=== PATIENT | male | born 1990 | race Caucasian/White ===

== ENCOUNTER 2021-06-14 16:09 | Inpatient (IN) | payer SELFPAY ==
[2021-06-14] VITALS (7 sets, daily range): BP systolic 0–79; BP diastolic 0–52
[2021-06-14] MEDS ORDERED: MIDAZOLAM HCL/PF 5 MG/5 ML VIAL. ONE (16:11)
[2021-06-14] MEDS ORDERED: AMIODARONE 150 MG in IV DEXTROSE 5% 100ML 100 ML IV ONE (17:00)
[2021-06-14] MEDS ORDERED: SODIUM BICARB ADULT 8.4% 50 MEQ/50 ML DISP.SYRIN. ONE (17:00)
[2021-06-14] MEDS ORDERED: EPINEPHrine SYRINGE 1 MG/10 ML SYRINGE. ONE (17:00)
[2021-06-14] MEDS ORDERED: AMIODARONE 450 MG in IV DEXTROSE 5% 250 ML IV ONE (17:00)
[2021-06-14] MEDS ORDERED: ACETAMINOPHEN 650 MG SUPP.RECT. PR ONE (17:00)
[2021-06-14] MEDS ORDERED: AMIODARONE 150 MG/3 ML VIAL ONE (17:00)
[2021-06-14] MEDS ORDERED: CALCIUM CHLORIDE 1,000 MG/10 ML DISP.SYRIN ONE (17:00)
[2021-06-14] MEDS ORDERED: EPINEPHrine VIAL 30 MG/30 ML VIAL ONE (17:11)
[2021-06-14 17:12] LABS: BASO % 0 % (0-3); EOS % 0 % (0-3); LYMPH % 4 % (24-48); MEAN CORPUSCULAR HEMOGLOBIN 29 pg (25-35); MEAN CORPUSCULAR HGB CONC 28 g/dL (31-37); MEAN CORPUSCULAR VOLUME 102 fL (79-100); MONO # 0.8 x10^3/uL (0.0-1.1); MONO % 5 % (0-9); NEUT % 91 % (31-73); RED CELL DISTRIBUTION WIDTH 14.2 % (11.5-14.5)
[2021-06-14 17:13] LABS: CALCIUM 9.3 mg/dL (8.5-10.1); GFR 24.7; HEMATOCRIT 55.2 % (39.0-53.0); HEMOGLOBIN 15.6 g/dL (13.0-17.5); NEUT # 14.8 x10^3/uL (1.8-7.7); PLATELET COUNT 481 x10^3/uL (140-400); POTASSIUM 3.9 mmol/L (3.5-5.1); RED BLOOD COUNT 5.42 x10^6/uL (4.30-5.70); WHITE BLOOD COUNT 16.3 x10^3/uL (4.0-11.0)
[2021-06-14 17:16] LABS: ALBUMIN 3.5 g/dL (3.4-5.0); ALBUMIN/GLOBULIN RATIO 0.9 (1.0-1.7); LYMPH # 0.7 x10^3/uL (1.0-4.8); MAGNESIUM 2.8 mg/dL (1.8-2.4); TOTAL BILIRUBIN 0.7 mg/dL (0.2-1.0); TOTAL PROTEIN 7.3 g/dL (6.4-8.2)
[2021-06-14] MEDS ORDERED: NOREPINEPHRINE VIAL 8 MG in IV DEXTROSE 5% 250 ML IV ONE (17:30)
[2021-06-14] MEDS ORDERED: INSULIN REGULAR VIAL 100 UNIT in IV NORMAL SALINE 100ML IV PRN (17:30)
[2021-06-14 17:32] LABS: AMORPHOUS SEDIMENT,UR PRESENT /HPF; BACTERIA,URINE 0 /HPF (0-FEW)
--- NOTE | 2021-06-14 17:33 | RAD ---
Exam: Chest one view INDICATION: Post intubation TECHNIQUE: Frontal view of the chest Comparisons: None FINDINGS: Enteric tube with tip in the left upper quadrant likely within stomach. Endotracheal tube with tip ap proximately 4 cm above the neil. The cardiomediastinal silhouette and pulmonary vessels are within normal limits. There is moderate to large right pneumothorax. There is mild shift the left IMPRESSION: 1. Moderate to large right pneumothorax. Subsequent x-ray demonstrates placement of a chest tube. 2. Other lines and tubes as described above. Electronically signed by: Kwan Freitas MD (06/14/2021 5:30 PM) [facility]
--- NOTE | 2021-06-14 17:37 | RAD ---
XR CHEST 1V Clinical History: Reason: CHEST TUBE PLACEMENT / Spl. Instructions: / History: Technique: AP view of the chest was obtained at 06/14/2021 5:22 PM. Comparison: June 14, 2021. Findings: There has been interval placement of a small-caliber right-sided chest tube. The right-sided pneumoth orax is no longer visualized. The endotracheal tube has been advanced and has its tip in the right main bronchus. There is low lung volumes causing crowding of vasculature. The heart is borderline enlarged. The pulmonary vessels are top normal limits in size and is mild perihilar linear opacities. The enteric tube is again seen unc hanged. Impression: 1. The right pneumothorax is no longer seen status post placement of a chest tube. 2. Right mainstem and patient. Recommend withdrawal of endotracheal tube by at least 3 cm. 3. Bilateral pulmonary infiltrates seen previously. Electronically signed by: Wenceslao Barriga III, MD (06/14/2021 5:35 PM) [facility]
[2021-06-14 17:38] LABS: BARBITURATES NEG (NEG); BENZODIAZEPINES NEG (NEG); CANNABINOIDS NEG (NEG); COCAINE NEG (NEG); METHADONE NEG (NEG); OPIATES NEG (NEG); PHENCYCLIDINE NEG (NEG)
[2021-06-14 17:39] LABS: AMPHETAMINE/METHAMPHETAMINE NEG (NEG)
--- NOTE | 2021-06-14 17:54 | PDOC1 ---
History and Physical Date of Admission Date of Admission DATE: 06/14/21 TIME: 17:54 Identification/Chief Complaint Chief Complaint SVT/Cardiac arrest Source Source: Caregiver, Chart review History of Present Illness History of Present Illness Mr Steele is a 31 yo male with PMHx chiari malformation who comes from home via EMS unresponsive after treatment for SVT. Was given 3 doses of adenosine with no change in rate or rhythm. Had a fever of 102.7 F. His mother notes that after he came out of the shower she heard a thump this morning and he was not responding well he had been complaining of a little bit of a headache recently and did have some numbness and tingling in his extremities prior to his shower but no worse than normal. Has history of Chiari malformation at age 8 did have third ventricular stent placement per his father at [facility]. He did have meningitis in the early 1999s. There is a strong family history of diabetes and hypertension. Upon arrival in the emergency room the patient had recurrent SVT and had respiratory distress, code was called and the patient was intubated and had CPR and was resuscitated. CXR revealed a right-sided pneumothorax and a chest tube has been placed and upsized per ED physician. WBC 16.3, Hb 15.6 with MCV 102, platelets 41, NA 127, K3.9, BUN 29, CR 3, glucose 2017, calcium 9.3, magnesium 2.8 total bilirubin 0.7, AST 19, ALT 74, alkaline phosphatase 175, albumin 3.5, lipase 71, high-sensitivity troponin is 15, urine drug screen negative, urinalysis with moderate blood glucosuria. ABG 6.8/113/86. Past Medical History Cardiovascular: No pertinent hx Past Surgical History Past Surgical History: Other (Chiari cerebellar resection age 8) Family History Family History: Cancer, Diabetes, High Cholestrol, Hypertension Social History Smoke: No ALCOHOL: none Drugs: None Current Medications Current Medications Current Medications Midazolam HCl (Versed) 5 mg STK-MED ONCE .ROUTE ; Start 06/14/21 at 16:11; Stop 06/14/21 at 16:11; Status DC Acetaminophen (Tylenol Supp) 975 mg 1X ONCE HI ; Start 06/14/21 at 17:00; Stop 06/14/21 at 17:33; Status DC Amiodarone HCl 150 mg/Dextrose 103 ml @ 618 mls/hr 1X ONCE IV ; Start 06/14/21 at 17:00; Stop 06/14/21 at 17:09; Status DC Amiodarone HCl 450 mg/Dextrose 259 ml @ 33 mls/hr 1X ONCE IV ; Start 06/14/21 at 17:00; Stop 06/15/21 at 00:50 Epinephrine HCl (Adrenalin) 30 mg STK-MED ONCE .ROUTE ; Start 06/14/21 at 17:11; Stop 06/14/21 at 17:11; Status DC Norepinephrine Bitartrate 8 mg/ Dextrose 258 ml @ 23.801 mls/ hr 1X ONCE IV ; Start 06/14/21 at 17:30; Stop 06/14/21 at 17:31; Status DC Insulin Human Regular 100 unit/ Sodium Chloride 101 ml @ 1 mls/hr CONT PRN IV PER PROTOCOL; Start 06/14/21 at 17:30 Piperacillin Sod/ Tazobactam Sod 4.5 gm/Sodium Chloride 100 ml @ 200 mls/hr 1X ONCE IV ; Start 06/14/21 at 18:00; Stop 06/14/21 at 18:29 Allergies Allergies: Coded Allergies: No Known Drug Allergies (Unverified , 06/14/21) ROS Review of System Unable to obtain is unresponsive. Physical Exam General: Other (On ventilator not responsive not on sedation) HEENT: Atraumatic, PERRLA, Other (Posterior cervical scar) Heart: irregularly irregular Abdomen: Normal bowel sounds, Other (Massively distended) Extremities: No clubbing, No cyanosis, No edema, Normal pulses, No tenderness/swelling Skin: No rashes, No breakdown, No significant lesion Neuro: Other (Does not withdraw to painful stimuli) Psych/Mental Status: Other (Not responsive) Labs Labs Laboratory Tests Test 06/14/21 16:15 06/14/21 16:47 White Blood Count 16.3 x10^3/uL (4.0-11.0) Red Blood Count 5.42 x10^6/uL (4.30-5.70) Hemoglobin 15.6 g/dL (13.0-17.5) Hematocrit 55.2 % (39.0-53.0) Mean Corpuscular Volume 102 fL (79-100) Mean Corpuscular Hemoglobin 29 pg (25-35) Mean Corpuscular Hemoglobin Concent 28 g/dL (31-37) Red Cell Distribution Width 14.2 % (11.5-14.5) Platelet Count 481 x10^3/uL (140-400) Neutrophils (%) (Auto) 91 % (31-73) Lymphocytes (%) (Auto) 4 % (24-48) Monocytes (%) (Auto) 5 % (0-9) Eosinophils (%) (Auto) 0 % (0-3) Basophils (%) (Auto) 0 % (0-3) Neutrophils # (Auto) 14.8 x10^3/uL (1.8-7.7) Lymphocytes # (Auto) 0.7 x10^3/uL (1.0-4.8) Monocytes # (Auto) 0.8 x10^3/uL (0.0-1.1) Eosinophils # (Auto) 0.0 x10^3/uL (0.0-0.7) Basophils # (Auto) 0.0 x10^3/uL (0.0-0.2) Sodium Level 127 mmol/L (136-145) Potassium Level 3.9 mmol/L (3.5-5.1) Chloride Level 88 mmol/L (98-107) Carbon Dioxide Level 20 mmol/L (21-32) Anion Gap 19 (6-14) Blood Urea Nitrogen 29 mg/dL (8-26) Creatinine 3.0 mg/dL (0.7-1.3) Estimated GFR (Cockcroft-Gault) 24.7 BUN/Creatinine Ratio 10 (6-20) Glucose Level 2007 mg/dL (70-99) Calcium Level 9.3 mg/dL (8.5-10.1) Magnesium Level 2.8 mg/dL (1.8-2.4) Total Bilirubin 0.7 mg/dL (0.2-1.0) Aspartate Amino Transf (AST/SGOT) 19 U/L (15-37) Alanine Aminotransferase (ALT/SGPT) 74 U/L (16-63) Alkaline Phosphatase 175 U/L (46-116) Troponin I High Sensitivity 15 ng/L (4-75) Total Protein 7.3 g/dL (6.4-8.2) Albumin 3.5 g/dL (3.4-5.0) Albumin/Globulin Ratio 0.9 (1.0-1.7) Lipase 71 U/L (73-393) Urine Collection Type Unknown Urine Color (Auto) Colorless Urine Turbidity Clear Urine pH (Auto) 5.5 (<5.0-8.0) Urine Specific [place] 1.028 (1.000-1.030) Urine Protein (Auto) Negative mg/dL (Negative) Urine Glucose (Auto)(UA) >=1000 mg/dL (Negative) Urine Ketones (Auto) Trace mg/dL (Negative) Urine Blood (Auto) Moderate (Negative) Urine Nitrite Negative (Negative) Urine Bilirubin (Auto) Negative (Negative) Urine Urobilinogen (Auto) Normal mg/dL (Normal) Urine Leukocyte Esterase (Auto) Negative (Negative) Urine RBC 1-2 /HPF (0-2) Urine WBC 1-4 /HPF (0-4) Urine Amorphous Sediment Present /HPF Urine Bacteria 0 /HPF (0-FEW) Urine Opiates Screen Neg (NEG) Urine Methadone Screen Neg (NEG) Urine Barbiturates Neg (NEG) Urine Phencyclidine Screen Neg (NEG) Urine Amphetamine/Methamphetamine Neg (NEG) Urine Benzodiazepines Screen Neg (NEG) Urine Cocaine Screen Neg (NEG) Urine Cannabinoids Screen Neg (NEG) Urine Ethyl Alcohol Neg (NEG) Laboratory Tests Test 06/14/21 16:15 06/14/21 16:47 White Blood Count 16.3 x10^3/uL (4.0-11.0) Red Blood Count 5.42 x10^6/uL (4.30-5.70) Hemoglobin 15.6 g/dL (13.0-17.5) Hematocrit 55.2 % (39.0-53.0) Mean Corpuscular Volume 102 fL (79-100) Mean Corpuscular Hemoglobin 29 pg (25-35) Mean Corpuscular Hemoglobin Concent 28 g/dL (31-37) Red Cell Distribution Width 14.2 % (11.5-14.5) Platelet Count 481 x10^3/uL (140-400) Neutrophils (%) (Auto) 91 % (31-73) Lymphocytes (%) (Auto) 4 % (24-48) Monocytes (%) (Auto) 5 % (0-9) Eosinophils (%) (Auto) 0 % (0-3) Basophils (%) (Auto) 0 % (0-3) Neutrophils # (Auto) 14.8 x10^3/uL (1.8-7.7) Lymphocytes # (Auto) 0.7 x10^3/uL (1.0-4.8) Monocytes # (Auto) 0.8 x10^3/uL (0.0-1.1) Eosinophils # (Auto) 0.0 x10^3/uL (0.0-0.7) Basophils # (Auto) 0.0 x10^3/uL (0.0-0.2) Sodium Level 127 mmol/L (136-145) Potassium Level 3.9 mmol/L (3.5-5.1) Chloride Level 88 mmol/L (98-107) Carbon Dioxide Level 20 mmol/L (21-32) Anion Gap 19 (6-14) Blood Urea Nitrogen 29 mg/dL (8-26) Creatinine 3.0 mg/dL (0.7-1.3) Estimated GFR (Cockcroft-Gault) 24.7 BUN/Creatinine Ratio 10 (6-20) Glucose Level 2007 mg/dL (70-99) Calcium Level 9.3 mg/dL (8.5-10.1) Magnesium Level 2.8 mg/dL (1.8-2.4) Total Bilirubin 0.7 mg/dL (0.2-1.0) Aspartate Amino Transf (AST/SGOT) 19 U/L (15-37) Alanine Aminotransferase (ALT/SGPT) 74 U/L (16-63) Alkaline Phosphatase 175 U/L (46-116) Troponin I High Sensitivity 15 ng/L (4-75) Total Protein 7.3 g/dL (6.4-8.2) Albumin 3.5 g/dL (3.4-5.0) Albumin/Globulin Ratio 0.9 (1.0-1.7) Lipase 71 U/L (73-393) Urine Collection Type Unknown Urine Color (Auto) Colorless Urine Turbidity Clear Urine pH (Auto) 5.5 (<5.0-8.0) Urine Specific [place] 1.028 (1.000-1.030) Urine Protein (Auto) Negative mg/dL (Negative) Urine Glucose (Auto)(UA) >=1000 mg/dL (Negative) Urine Ketones (Auto) Trace mg/dL (Negative) Urine Blood (Auto) Moderate (Negative) Urine Nitrite Negative (Negative) Urine Bilirubin (Auto) Negative (Negative) Urine Urobilinogen (Auto) Normal mg/dL (Normal) Urine Leukocyte Esterase (Auto) Negative (Negative) Urine RBC 1-2 /HPF (0-2) Urine WBC 1-4 /HPF (0-4) Urine Amorphous Sediment Present /HPF Urine Bacteria 0 /HPF (0-FEW) Urine Opiates Screen Neg (NEG) Urine Methadone Screen Neg (NEG) Urine Barbiturates Neg (NEG) Urine Phencyclidine Screen Neg (NEG) Urine Amphetamine/Methamphetamine Neg (NEG) Urine Benzodiazepines Screen Neg (NEG) Urine Cocaine Screen Neg (NEG) Urine Cannabinoids Screen Neg (NEG) Urine Ethyl Alcohol Neg (NEG) VTE Prophylaxis Ordered VTE Prophylaxis Devices: No VTE Pharmacological Prophylaxi: Yes Assessment/Plan Assessment/Plan Cardiac arrest - with recurrent SVT, no clear etiology at this time Combined hypercapnic and hypoxic respiratory failure - s/p intubation Pneumothorax - on right, s/p chest tube placement in ED. Pulmonology consulted, will place to suction Sepsis - no clear source, though he has previously had meningitis, will treat as such DKA - glucose 2006, IV insulin given, aggressive IVF reuscitation, DKA protocol. No history of DM2 per family Acute renal failure - no renal disease history, likely vasomotor nephropathy History of Chiari Malformation - s/p cerebellar resection and stent placement per father. Macrocytosis - unclear etiology, family denies alcohol use history FEN - NPO PPX - heparin FULL CODE Dispo - inpatient ICU Patient is critically ill discussed with family bedside including parents and grandparents his poor prognosis CC time 47 Justifications for Admission Other Justification SLOANE MELCHOR MD Jun 14, 2021 17:54
[2021-06-14 17:57] LABS: BASE EXCESS ABG -20 mmol/L (-3-3); HCO3 ABG 17 mmol/L (21-28); PO2 ABG 86 mmHg (85-108); SAT O2 ABG 86 % (92-99)
[2021-06-14] MEDS ORDERED: PIPERACILLIN/TAZOBACTAM 4.5 GM in IV NORMAL SALINE 100ML 100 ML IV ONE (18:00)
[2021-06-14] MEDS ORDERED: ONDANSETRON PF 4 MG/2 ML VIAL. IVP PRN (18:00)
[2021-06-14 18:02] LABS: BASE EXCESS ABG -20 mmol/L (-3-3); HCO3 ABG 17 mmol/L (21-28); PO2 ABG 57 mmHg (85-108)
--- NOTE | 2021-06-14 18:04 | RAD ---
EXAMINATION: Chest radiograph. VIEWS: 1 COMPARISON: 06/14/2021 INDICATION:31 years, Male, Central line placement. FINDINGS/ IMPRESSION: * Interval placement of right IJ central venous catheter with the tip terminates in the superior cav oatrial junction. * There is a new moderate right pneumothorax despite pleural drain catheter in place. * No other significant changes since earlier exam. Electronically signed by: Elena Brown MD (06/14/2021 6:01 PM) [facility]
[2021-06-14 18:06] LABS: % BANDS 5 % (0-9); % LYMPHS 3 % (24-48); % MONOS 4 % (0-10); % SEGS 88 % (35-66); PLT ESTIMATE INCREASED (ADEQUATE)
[2021-06-14 18:07] LABS: FIO2 ABG 100; PCO2 ABG 103 mmHg (35-46); SAT O2 ABG 67 % (92-99)
[2021-06-14 18:22] LABS: FIO2 ABG 100; PCO2 ABG 113 mmHg (35-46)
--- NOTE | 2021-06-14 18:30 | PHYS DOC ---
Past Medical History Additional Past Medical Histor: PER EMS, PARENT DENIES MED HX. Past Surgical History: Other Additional Past Surgical Histo: BRAIN SX CHILD Smoking Status: Unknown if ever smoked Alcohol Use: Sober Additional Information: UNKNOWN ETOH HX General Adult EDM: Chief Complaint: CPR/FULL ARREST HPI: HPI: Patient is a 31 year old male who was brought here by EMS from home due to altered mental status, respiratory problem, unstable SVT. EMS said patient family called because patient was acting confused today. When they got there patient was breathing heavily, his heart rate was in the 200s, his blood pressure was low, they did a blood sugar and it was over 500. Family stated that patient had no history of diabetic. No injury reported. EMS said they proceed with adenosine 6 mg, 12 mg, 12 mg, but was not able to convert the SVT. Patient blood pressure was low, therefore they cardioverted him with 50 J. His heart rate slowed down but still in the upper 170 bpm, patient was still in SVT, was confused, respond to painful stimuli, breathing heavily, his oxygen saturation was only in the 70% on 100% oxygen via mask. Patient was brought here emergently. Upon arrival to ER, patient was only responding to painful stimuli, patient was tachypneic and tachycardic . Patient was hypotensive. Patient was given 5 mg versus emergently, patient was cardioverted with 100 J. Patient heart rate was not converted. Patient was then given 300 mg of amiodarone, and 1 L normal saline IV bolus. Patient was not responding to verbal stimuli at this time. Decision made to intubate the patient, patient was given 20 mg of etomidate and 100 mg of succinylcholine. There was a large amount of food particle coming out of his mouth. Suction was done, patient went into cardiac arrest. Patient was intubated emergently by this physician, patient was resuscitated per ACLS protocol. Review of Systems: Review of Systems: Not able to evaluate because patient condition Heart Score: C/O Chest Pain: N/A Risk Factors: Risk Factors: DM, Current or recent (<one month) smoker, HTN, HLP, family history of CAD, obesity. Risk Scores: Score 0 - 3: 2.5% MACE over next 6 weeks - Discharge Home Score 4 - 6: 20.3% MACE over next 6 weeks - Admit for Clinical Observation Score 7 - 10: 72.7% MACE over next 6 weeks - Early Invasive Strategies Current Medications: Current Medications Medications (Trade) Dose Ordered Sig/Tamera Start Time Stop Time Status Last Admin Dose Admin Acetaminophen (Tylenol Supp) 975 mg 1X ONCE 06/14/21 17:00 06/14/21 17:33 DC Amiodarone HCl 150 mg/Dextrose 103 ml @ 618 mls/hr 1X ONCE 06/14/21 17:00 06/14/21 17:09 DC Amiodarone HCl 450 mg/Dextrose 259 ml @ 33 mls/hr 1X ONCE 06/14/21 17:00 06/15/21 00:50 Epinephrine HCl (Adrenalin) 30 mg STK-MED ONCE 06/14/21 17:11 06/14/21 17:11 DC Insulin Human Regular 100 unit/ Sodium Chloride 101 ml @ 1 mls/hr CONT PRN 06/14/21 17:30 06/14/21 18:07 38.9 MLS/HR Midazolam HCl (Versed) 5 mg STK-MED ONCE 06/14/21 16:11 06/14/21 16:11 DC Norepinephrine Bitartrate 8 mg/ Dextrose 258 ml @ 23.801 mls/ hr 1X ONCE 06/14/21 17:30 06/14/21 17:31 DC Allergies: Allergies: Allergies Coded Allergies Type Severity Reaction Last Updated Verified Unable to Assess 06/14/21 No Physical Exam: PE: Constitutional: morbidly Obese, severe distress, cyanotic, only responsive to painful stimuli. HENT: Normocephalic, atraumatic, bilateral external ears normal, very dry oral mucosa. Eyes: PERRLA, EOMI, conjunctiva normal, no discharge. [] Neck: neck is short, no JVD, TRACHEA IS MIDLINE. Cardiovascular: Tachycardia, irregular, NO MURMUR. Lungs & Thorax: TACHYPNIC INITIALLY, LABOROUS BREATHING. AFTER INTUBATION: Bilateral breath sounds WITH CRACKLES, RALE ON MECHANICAL VENTILATOR. Abdomen: ABDOMEN IS DISTENDED MODERATELY. Skin: COLD, PALE. Back: NO EVIDENCE OF INJURY Extremities:NO TRAUMA, NO DEFORMITY Neurologic: ONLY RESPONSIVE TO PAINFUL STIMULI UPON ARRIVAL. Psychologic: UNABLE TO EVALUATE Current Patient Data: Labs: Laboratory Tests Test 06/14/21 16:15 06/14/21 16:47 06/14/21 17:50 White Blood Count 16.3 x10^3/uL (4.0-11.0) H Red Blood Count 5.42 x10^6/uL (4.30-5.70) Hemoglobin 15.6 g/dL (13.0-17.5) Hematocrit 55.2 % (39.0-53.0) H Mean Corpuscular Volume 102 fL (79-100) H Mean Corpuscular Hemoglobin 29 pg (25-35) Mean Corpuscular Hemoglobin Concent 28 g/dL (31-37) L Red Cell Distribution Width 14.2 % (11.5-14.5) Platelet Count 481 x10^3/uL (140-400) H Neutrophils (%) (Auto) 91 % (31-73) H Lymphocytes (%) (Auto) 4 % (24-48) L Monocytes (%) (Auto) 5 % (0-9) Eosinophils (%) (Auto) 0 % (0-3) Basophils (%) (Auto) 0 % (0-3) Neutrophils # (Auto) 14.8 x10^3/uL (1.8-7.7) H Lymphocytes # (Auto) 0.7 x10^3/uL (1.0-4.8) L Monocytes # (Auto) 0.8 x10^3/uL (0.0-1.1) Eosinophils # (Auto) 0.0 x10^3/uL (0.0-0.7) Basophils # (Auto) 0.0 x10^3/uL (0.0-0.2) Segmented Neutrophils % 88 % (35-66) H Band Neutrophils % 5 % (0-9) Lymphocytes % 3 % (24-48) L Monocytes % 4 % (0-10) Platelet Estimate Increased (ADEQUATE) Sodium Level 127 mmol/L (136-145) L Potassium Level 3.9 mmol/L (3.5-5.1) Chloride Level 88 mmol/L (98-107) L Carbon Dioxide Level 20 mmol/L (21-32) L Anion Gap 19 (6-14) H Blood Urea Nitrogen 29 mg/dL (8-26) H Creatinine 3.0 mg/dL (0.7-1.3) H Estimated GFR (Cockcroft-Gault) 24.7 BUN/Creatinine Ratio 10 (6-20) Glucose Level 2007 mg/dL (70-99) *H Calcium Level 9.3 mg/dL (8.5-10.1) Magnesium Level 2.8 mg/dL (1.8-2.4) H Total Bilirubin 0.7 mg/dL (0.2-1.0) Aspartate Amino Transferase (AST) 19 U/L (15-37) Alanine Aminotransferase (ALT) 74 U/L (16-63) H Alkaline Phosphatase 175 U/L (46-116) H Troponin I High Sensitivity 15 ng/L (4-75) Total Protein 7.3 g/dL (6.4-8.2) Albumin 3.5 g/dL (3.4-5.0) Albumin/Globulin Ratio 0.9 (1.0-1.7) L Lipase 71 U/L (73-393) L Urine Collection Type Unknown Urine Color (Auto) Colorless Urine Turbidity Clear Urine pH (Auto) 5.5 (<5.0-8.0) Urine Specific [place] 1.028 (1.000-1.030) Urine Protein (Auto) Negative mg/dL (Negative) Urine Glucose (Auto)(UA) >=1000 mg/dL (Negative) Urine Ketones (Auto) Trace mg/dL (Negative) Urine Blood (Auto) Moderate (Negative) Urine Nitrite Negative (Negative) Urine Bilirubin (Auto) Negative (Negative) Urine Urobilinogen (Auto) Normal mg/dL (Normal) Urine Leukocyte Esterase (Auto) Negative (Negative) Urine RBC 1-2 /HPF (0-2) Urine WBC 1-4 /HPF (0-4) Urine Amorphous Sediment Present /HPF Urine Bacteria 0 /HPF (0-FEW) O2 Saturation 86 % (92-99) L 67 % (92-99) *L Arterial Blood pH 6.80 (7.35-7.45) *L 6.83 (7.35-7.45) *L Arterial Blood pCO2 at Patient Temp 113 mmHg (35-46) *H 103 mmHg (35-46) *H Arterial Blood pO2 at Patient Temp 86 mmHg (85-108) 57 mmHg (85-108) L Arterial Blood HCO3 17 mmol/L (21-28) L 17 mmol/L (21-28) L Arterial Blood Base Excess -20 mmol/L (-3-3) L -20 mmol/L (-3-3) L FiO2 100 100 Urine Opiates Screen Neg (NEG) Urine Methadone Screen Neg (NEG) Urine Barbiturates Neg (NEG) Urine Phencyclidine Screen Neg (NEG) Urine Amphetamine/Methamphetamine Neg (NEG) Urine Benzodiazepines Screen Neg (NEG) Urine Cocaine Screen Neg (NEG) Urine Cannabinoids Screen Neg (NEG) Urine Ethyl Alcohol Neg (NEG) Laboratory Tests 06/14/21 16:15 Laboratory Tests 06/14/21 16:15 Vital Signs: Vital Signs Date Time Temp Pulse Resp B/P (MAP) Pulse Ox O2 Delivery O2 Flow Rate FiO2 06/14/21 16:10 102.7 179 26 154/87 (109) 100 NonRebreather Mask 10.0 102.7 EKG: EKG: [] Radiology/Procedures: Radiology/Procedures: [][place] [address] IMAGING REPORT Signed PATIENT: JENNI ACUNA ACCOUNT: [id number] : 1990 LOCATION: ER AGE: 31 SEX: M EXAM STATUS: PRE ER ORD. PHYSICIAN: KAYLEE MEJÍA DO REASON: post intubation, CPR PROCEDURE: PORTABLE CHEST 1V Exam: Chest one view INDICATION: Post intubation TECHNIQUE: Frontal view of the chest Comparisons: None FINDINGS: Enteric tube with tip in the left upper quadrant likely within stomach. Endo tracheal tube with tip approximately 4 cm above the neil. The cardiomediastinal silhouette and pulmonary vessels are within normal limits. There is moderate to large right pneumothorax. There is mild shift the left IMPRESSION: 1. Moderate to large right pneumothorax. Subsequent x-ray demonstrates placement of a chest tube. 2. Other lines and tubes as described above. Electronically signed by: Kwan Vasquez MD (06/14/2021 5:30 PM) [facility] DICTATED and SIGNED BY: KWAN VASQUEZ MD DATE: 06/14/[address] [address] IMAGING REPORT Signed PATIENT: JENNI ACUNA ACCOUNT: [id number] : 1990 LOCATION: ER AGE: 31 SEX: M EXAM STATUS: PRE ER ORD. PHYSICIAN: KAYLEE MEJÍA DO REASON: CHEST TUBE PLACEMENT PROCEDURE: CHEST AP ONLY XR CHEST 1V Clinical History: Reason: CHEST TUBE PLACEMENT / Spl. Instructions: / History: Technique: AP view of the chest was obtained at 06/14/2021 5:22 PM. Comparison: June 14, 2021. Findings: There has been interval placement of a small-caliber right-sided chest tube. The right-sided pneumothorax is no longer visualized. The endotracheal tube has been advanced and has its tip in the right main bronchus. There is low lung volumes causing crowding of vasculature. The heart is borderline enlarged. The pulmonary vessels are top normal limits in size and is mild perihilar linear opacities. The enteric tube is again seen unchanged. Impression: 1. The right pneumothorax is no longer seen status post placement of a chest tube. 2. Right mainstem and patient. Recommend withdrawal of endotracheal tube by at least 3 cm. 3. Bilateral pulmonary infiltrates seen previously. Electronically signed by: Earlene Wills III, MD (06/14/2021 5:35 PM) [facility] DICTATED and SIGNED BY: EARLENE WILLS III, MD DATE: 06/14/211730 Course & Med Decision Making: Course & Med Decision Making Pertinent Labs and Imaging studies reviewed. (See chart for details) INTUBATION: Indication: Respiratory failure Consent: Unable to give consent due to emergent nature. Medications Used: see nursing note Procedure: The patient was placed in the appropriate position. Intubation was performed WITH GLIDESCOPE, CORD VISUALIZATION METHOD, ET TUBE 8 KOSOVAN, SECURED AT 24 AT LIP Initial confirmation of placement included bilateral breath s ounds, tube fogging, adequate chest rise, adequate pulse oximetry reading and good color change on CO2 DETECTOR. A chest x-ray to verify correct placement of the tube showed appropriate tube position. Complications: PATIENT ASPIRATED AND CODED DURING THE PROCEDURE. CHEST TUBE PLACEMENT Indication: RIGHT PNEUMOTHORAX Consent: EMERGENT CONSENT. Procedure: The patient was placed in an appropriate position. An incision was made ON RIGHT MIDMAXILLARY LINE, A 7 KOSOVAN COOK CATHETER WAS PLACED IN 4 INTER COSTAL SPACEaFrench chest tube was placed and connected to SUCTION. The tube was sutured in place and the site was covered with an occlusive dressing. All connections were banded. Breath sounds after the procedure were COARSE. A chest x-ray was obtained to evaluate placement [X-RAY]. Complications: NONE CENTRAL VENOUS LINE PLACEMENT: Indication: Vascular access, PATIENT WAS HYPOTENSIVE, HYPOXIC Consent: EMERGENT CONSENT. Procedure: The patient was positioned appropriately and the skin over the RIGHT SUBCLAVIAN VEIN was prepped and draped in a sterile fashion. Local anesthesia was NOT used. Ultrasound guidance WAS NOT utilized. A large bore needle was used to identify the vein. A guide wire was then inserted into the vein through the needle. A triple lumen catheter was then inserted into the vessel over the guide wire using the Seldinger technique. All ports showed good, free flowing blood return and were flushed with saline solution. The catheter was then securely fastened to the skin with sutures and covered with a sterile dressing. A post procedure X-ray was ordered. Patient is a 31-year-old male who was brought here by EMS from home due to altered mental status, respiratory problem, patient was found to be in unstable SVT, hypoxic, hypotensive, altered mentation. EMS did give him adenosine, was not responsive to it, patient WAS shocked 1 time by EMS, patient was still in SVT, unstable, altered mentation, hypoxic, hypotensive. Upon arrival to room patient was given 5 mg Versed IV, patient was cardioverted with 100 J, patient was not responsive to it, he becAme more tachycardic. Patient was given 300 mg of amiodarone. Patient was then cardioverted 150 J, it did slow his heart rate down to 130 to 140 bpm. Patient was unresponsive to verbal, hypoxic, hypotens jas. Patient was then intubated to protect his airway and provide oxygen. During the intubation process, patient aspirated, no pulse, patient was coded per ACLS protocol. Patient was intubated successfully. ROSC was returned at 1843. Chest x-ray show tension pneumothorax on the right side. Patient coded again. A Cook catheter chest tube was placed on the right side. ROSC was returned again. Chest x-ray showed improvement of the pneumothorax. However later patient was hypoxic, hypotensive, patient will need to have a central line placed for IV access and pressOR medication. A central line was placed on the right subclavian area. Patient was still hypoxic despite he was intubated. Checking the balloon of the ET tube, it appeared to be leak. ET tube was exchanged using the bougie. Repeat chest x-ray show return right-sided pneumothorax. There is small bore chest tube appeared to be kinked and clotted. Therefore a 24 Algerian chest tube was placed in its place. Repeat chest x-ray showed consistent right-sided pneumothorax. Patient is intubated, on Levophed, on insulin drip. Patient was not responsive to painful or verbal stimuli despite he is not on any sedation medication. Patient was given 5 mg Versed from the beginning. Patient case was discussed with the marketing database coordinator on-call Dr. Tan. He came down to see the patient in the room. Patient care was discussed with the hospital on-call Dr. Prescott who agreed to admit the patient . This physician and Dr. Prescott discussed patient prognosis with his family including his mom and dad that. Patient prognosis is very poor. Due to a high probability of clinically significant, life-threatening deterioration, the patient required my highest level of preparedness to intervene emergently and I personally spent this critical care time directly and personally managing the patient. This critical care time included obtaining the history; examining the patient; pulse oximetry; real-time ordering and review of studies; arranging urgent treatment with development of a management plan; evaluation of patient's response to treatment; frequent reassessment; and, discussions with other providers. This critical care time was performed to assess and manage the high probability of imminent, life-threatening deterio ration that could result in multi-organ failure. It was not inclusive of separately billable procedures. Please see the Course and Medical Decision Making section and the rest of the note for further information on patient assessment and treatment. Total critical care time is 60 minutes. Dragon Disclaimer: Dragon Disclaimer: This electronic medical record was generated, in whole or in part, using a voice recognition dictation system. Departure Departure Impression: Primary Impression: Cardiac arrest Additional Impressions: DKA (diabetic ketoacidosis) Acute renal failure Respiratory failure Pneumothorax, right Aspiration pneumonitis SVT (supraventricular tachycardia) Disposition: 09 ADMITTED INPATIENT Admitting Physician: UMESH (Dr. Pavel lEizabeth) Condition: CRITICAL Referrals: NO PCP (PCP) KAYLEE MEJÍA DO Jun 14, 2021 18:30
--- NOTE | 2021-06-14 18:42 | RAD ---
Exam: Chest one view INDICATION: Post chest tube placement TECHNIQUE: Frontal view of the chest Comparisons: Radiograph earlier today FINDINGS: There is a right-sided chest tube with tip at the right hilum. Enteric tube traverses below the diaph ragm with tip likely at the proximal stomach. There is a right IJ catheter with tip at the atrial cav al junction. The cardiomediastinal silhouette and pulmonary vessels are within normal limits. Persistent moderate-sized right pneumothorax. Remaining lungs are clear. IMPRESSION: Lines and tubes described above. Persistent moderate right pneumothorax. Electronically signed by: Kwan Freitas MD (06/14/2021 6:40 PM) [facility]
[2021-06-14] MEDS ORDERED: NOREPINEPHRINE VIAL 8 MG in IV DEXTROSE 5% 250 ML IV PRN (18:45)
--- NOTE | 2021-06-14 19:16 | PDOC2 ---
CONSULT Date of Consult Date of Consult DATE: 06/14/21 TIME: 19:02 Reason for Consult Reason for Consult: Cardiac arrest Referring Physician Referring Physician: Dr. Prescott Identification/Chief Complaint Chief Complaint Increasing shortness of breath Source Source: Caregiver, Chart review History of Present Illness Reason for Visit: The patient is a 31-year-old male who by his family report was feeling relatively well earlier today. When they checked with him this afternoon he reported numbness in his extremities bilaterally. He then reported progr essively increasing shortness of breath. He had episodes of apparent near syncope and paramedics were called. The paramedics transported the patient to the [place] emergency room. In route the patient reportedly had a rapid SVT that was not improved with adenosine. Upon arrival in the emergency room the patient had recurrent supraventricular tachycardia and then by nurses report became pulseless. A code was called and the patient was resuscitated. He has since been intubated. Chest x-ray did show a right-sided pneumothorax and a chest tube has been placed. His rate is now [address] segment changes. Blood pressure is 98/54 on pressors. Lab testing is significant for initial glucose of 2007, troponin of 15, WBC of 16.3, sodium of 127, potassium 3.9, BUN of 29 and a creatinine of 3.0. The patient has not seen a physician in several years. His family denies any history of diabetes. He has a history of Chiari Malformation surgery with shunt placement greater than 20 years ago at [facility]. He also had an episode of meningitis in 2004. Past Medical History CENTRAL NERVOUS SYSTEM: Other (Chiari malformation, meningitis) Past Surgical History Past Surgical History: Other (Chiari malformation surgery greater than 20 years ago with shunt placement) Family History Family History: Cancer, Hypertension Social History No ALCOHOL: none Current Problem List Problem List Problems Medical Problems: (1) Acute renal failure Status: Acute (2) Aspiration pneumonitis Status: Acute (3) Cardiac arrest Status: Acute (4) DKA (diabetic ketoacidosis) Status: Acute (5) Pneumothorax, right Status: Acute (6) Respiratory failure Status: Acute (7) SVT (supraventricular tachycardia) Status: Acute Current Medications Current Medications Current Medications Midazolam HCl (Versed) 5 mg STK-MED ONCE .ROUTE ; Start 06/14/21 at 16:11; Stop 06/14/21 at 16:11; Status DC Acetaminophen (Tylenol Supp) 975 mg 1X ONCE NM ; Start 06/14/21 at 17:00; Stop 06/14/21 at 17:33; Status DC Amiodarone HCl 150 mg/Dextrose 103 ml @ 618 mls/hr 1X ONCE IV ; Start 06/14/21 at 17:00; Stop 06/14/21 at 17:09; Status DC Amiodarone HCl 450 mg/Dextrose 259 ml @ 33 mls/hr 1X ONCE IV ; Start 06/14/21 at 17:00; Stop 06/15/21 at 00:50 Epinephrine HCl (Adrenalin) 30 mg STK-MED ONCE .ROUTE ; Start 06/14/21 at 17:11; Stop 06/14/21 at 17:11; Status DC Norepinephrine Bitartrate 8 mg/ Dextrose 258 ml @ 23.801 mls/ hr 1X ONCE IV ; Start 06/14/21 at 17:30; Stop 06/14/21 at 17:31; Status DC Insulin Human Regular 100 unit/ Sodium Chloride 101 ml @ 1 mls/hr CONT PRN IV PER PROTOCOL Last administered on 06/14/21at 18:07; Start 06/14/21 at 17:30 Piperacillin Sod/ Tazobactam Sod 4.5 gm/Sodium Chloride 100 ml @ 200 mls/hr 1X ONCE IV Last administered on 06/14/21at 18:07; Start 06/14/21 at 18:00; Stop 06/14/21 at 18:29; Status DC Ondansetron HCl (Zofran) 4 mg PRN Q8HRS PRN IVP NAUSEA/VOMITING; Start 06/14/21 at 18:00; Stop 06/15/21 at 17:59 Norepinephrine Bitartrate 8 mg/ Dextrose 258 ml @ 23.801 mls/ hr CONT PRN IV PER PROTOCOL; Start 06/14/21 at 18:45 Allergies Allergies: Coded Allergies: Unable to Assess (Unverified , 06/14/21) PT IS UNRESPONSIVE ROS Review of System Not obtainable Physical Exam General: Other (Intubated on ventilator.) Lungs: Other (Decreased breath sounds right greater than left. Right-sided chest tube in place.) Heart: Other (Rate of 120.) Abdomen: Normal bowel sounds Vitals VITALS Vital Signs Date Time Temp Pulse Resp B/P (MAP) Pulse Ox O2 Delivery O2 Flow Rate FiO2 06/14/21 18:44 100 Ventilator 06/14/21 16:10 102.7 179 26 154/87 (109) 10.0 102.7 Labs Labs Laboratory Tests Test 06/14/21 16:15 06/14/21 16:47 06/14/21 17:50 White Blood Count 16.3 x10^3/uL (4.0-11.0) Red Blood Count 5.42 x10^6/uL (4.30-5.70) Hemoglobin 15.6 g/dL (13.0-17.5) Hematocrit 55.2 % (39.0-53.0) Mean Corpuscular Volume 102 fL (79-100) Mean Corpuscular Hemoglobin 29 pg (25-35) Mean Corpuscular Hemoglobin Concent 28 g/dL (31-37) Red Cell Distribution Width 14.2 % (11.5-14.5) Platelet Count 481 x10^3/uL (140-400) Neutrophils (%) (Auto) 91 % (31-73) Lymphocytes (%) (Auto) 4 % (24-48) Monocytes (%) (Auto) 5 % (0-9) Eosinophils (%) (Auto) 0 % (0-3) Basophils (%) (Auto) 0 % (0-3) Neutrophils # (Auto) 14.8 x10^3/uL (1.8-7.7) Lymphocytes # (Auto) 0.7 x10^3/uL (1.0-4.8) Monocytes # (Auto) 0.8 x10^3/uL (0.0-1.1) Eosinophils # (Auto) 0.0 x10^3/uL (0.0-0.7) Basophils # (Auto) 0.0 x10^3/uL (0.0-0.2) Segmented Neutrophils % 88 % (35-66) Band Neutrophils % 5 % (0-9) Lymphocytes % 3 % (24-48) Monocytes % 4 % (0-10) Platelet Estimate Increased (ADEQUATE) Sodium Level 127 mmol/L (136-145) Potassium Level 3.9 mmol/L (3.5-5.1) Chloride Level 88 mmol/L (98-107) Carbon Dioxide Level 20 mmol/L (21-32) Anion Gap 19 (6-14) Blood Urea Nitrogen 29 mg/dL (8-26) Creatinine 3.0 mg/dL (0.7-1.3) Estimated GFR (Cockcroft-Gault) 24.7 BUN/Creatinine Ratio 10 (6-20) Glucose Level 2007 mg/dL (70-99) Calcium Level 9.3 mg/dL (8.5-10.1) Magnesium Level 2.8 mg/dL (1.8-2.4) Total Bilirubin 0.7 mg/dL (0.2-1.0) Aspartate Amino Transf (AST/SGOT) 19 U/L (15-37) Alanine Aminotransferase (ALT/SGPT) 74 U/L (16-63) Alkaline Phosphatase 175 U/L (46-116) Troponin I High Sensitivity 15 ng/L (4-75) Total Protein 7.3 g/dL (6.4-8.2) Albumin 3.5 g/dL (3.4-5.0) Albumin/Globulin Ratio 0.9 (1.0-1.7) Lipase 71 U/L (73-393) Urine Collection Type Unknown Urine Color (Auto) Colorless Urine Turbidity Clear Urine pH (Auto) 5.5 (<5.0-8.0) Urine Specific [place] 1.028 (1.000-1.030) Urine Protein (Auto) Negative mg/dL (Negative) Urine Glucose (Auto)(UA) >=1000 mg/dL (Negative) Urine Ketones (Auto) Trace mg/dL (Negative) Urine Blood (Auto) Moderate (Negative) Urine Nitrite Negative (Negative) Urine Bilirubin (Auto) Negative (Negative) Urine Urobilinogen (Auto) Normal mg/dL (Normal) Urine Leukocyte Esterase (Auto) Negative (Negative) Urine RBC 1-2 /HPF (0-2) Urine WBC 1-4 /HPF (0-4) Urine Amorphous Sediment Present /HPF Urine Bacteria 0 /HPF (0-FEW) O2 Saturation 86 % (92-99) 67 % (92-99) Arterial Blood pH 6.80 (7.35-7.45) 6.83 (7.35-7.45) Arterial Blood pCO2 at Patient Temp 113 mmHg (35-46) 103 mmHg (35-46) Arterial Blood pO2 at Patient Temp 86 mmHg (85-108) 57 mmHg (85-108) Arterial Blood HCO3 17 mmol/L (21-28) 17 mmol/L (21-28) Arterial Blood Base Excess -20 mmol/L (-3-3) -20 mmol/L (-3-3) FiO2 100 100 Urine Opiates Screen Neg (NEG) Urine Methadone Screen Neg (NEG) Urine Barbiturates Neg (NEG) Urine Phencyclidine Screen Neg (NEG) Urine Amphetamine/Methamphetamine Neg (NEG) Urine Benzodiazepines Screen Neg (NEG) Urine Cocaine Screen Neg (NEG) Urine Cannabinoids Screen Neg (NEG) Urine Ethyl Alcohol Neg (NEG) Laboratory Tests Test 06/14/21 16:15 06/14/21 16:47 06/14/21 17:50 White Blood Count 16.3 x10^3/uL (4.0-11.0) Red Blood Count 5.42 x10^6/uL (4.30-5.70) Hemoglobin 15.6 g/dL (13.0-17.5) Hematocrit 55.2 % (39.0-53.0) Mean Corpuscular Volume 102 fL (79-100) Mean Corpuscular Hemoglobin 29 pg (25-35) Mean Corpuscular Hemoglobin Concent 28 g/dL (31-37) Red Cell Distribution Width 14.2 % (11.5-14.5) Platelet Count 481 x10^3/uL (140-400) Neutrophils (%) (Auto) 91 % (31-73) Lymphocytes (%) (Auto) 4 % (24-48) Monocytes (%) (Auto) 5 % (0-9) Eosinophils (%) (Auto) 0 % (0-3) Basophils (%) (Auto) 0 % (0-3) Neutrophils # (Auto) 14.8 x10^3/uL (1.8-7.7) Lymphocytes # (Auto) 0.7 x10^3/uL (1.0-4.8) Monocytes # (Auto) 0.8 x10^3/uL (0.0-1.1) Eosinophils # (Auto) 0.0 x10^3/uL (0.0-0.7) Basophils # (Auto) 0.0 x10^3/uL (0.0-0.2) Segmented Neutrophils % 88 % (35-66) Band Neutrophils % 5 % (0-9) Lymphocytes % 3 % (24-48) Monocytes % 4 % (0-10) Platelet Estimate Increased (ADEQUATE) Sodium Level 127 mmol/L (136-145) Potassium Level 3.9 mmol/L (3.5-5.1) Chloride Level 88 mmol/L (98-107) Carbon Dioxide Level 20 mmol/L (21-32) Anion Gap 19 (6-14) Blood Urea Nitrogen 29 mg/dL (8-26) Creatinine 3.0 mg/dL (0.7-1.3) Estimated GFR (Cockcroft-Gault) 24.7 BUN/Creatinine Ratio 10 (6-20) Glucose Level 2007 mg/dL (70-99) Calcium Level 9.3 mg/dL (8.5-10.1) Magnesium Level 2.8 mg/dL (1.8-2.4) Total Bilirubin 0.7 mg/dL (0.2-1.0) Aspartate Amino Transf (AST/SGOT) 19 U/L (15-37) Alanine Aminotransferase (ALT/SGPT) 74 U/L (16-63) Alkaline Phosphatase 175 U/L (46-116) Troponin I High Sensitivity 15 ng/L (4-75) Total Protein 7.3 g/dL (6.4-8.2) Albumin 3.5 g/dL (3.4-5.0) Albumin/Globulin Ratio 0.9 (1.0-1.7) Lipase 71 U/L (73-393) Urine Collection Type Unknown Urine Color (Auto) Colorless Urine Turbidity Clear Urine pH (Auto) 5.5 (<5.0-8.0) Urine Specific [place] 1.028 (1.000-1.030) Urine Protein (Auto) Negative mg/dL (Negative) Urine Glucose (Auto)(UA) >=1000 mg/dL (Negative) Urine Ketones (Auto) Trace mg/dL (Negative) Urine Blood (Auto) Moderate (Negative) Urine Nitrite Negative (Negative) Urine Bilirubin (Auto) Negative (Negative) Urine Urobilinogen (Auto) Normal mg/dL (Normal) Urine Leukocyte Esterase (Auto) Negative (Negative) Urine RBC 1-2 /HPF (0-2) Urine WBC 1-4 /HPF (0-4) Urine Amorphous Sediment Present /HPF Urine Bacteria 0 /HPF (0-FEW) O2 Saturation 86 % (92-99) 67 % (92-99) Arterial Blood pH 6.80 (7.35-7.45) 6.83 (7.35-7.45) Arterial Blood pCO2 at Patient Temp 113 mmHg (35-46) 103 mmHg (35-46) Arterial Blood pO2 at Patient Temp 86 mmHg (85-108) 57 mmHg (85-108) Arterial Blood HCO3 17 mmol/L (21-28) 17 mmol/L (21-28) Arterial Blood Base Excess -20 mmol/L (-3-3) -20 mmol/L (-3-3) FiO2 100 100 Urine Opiates Screen Neg (NEG) Urine Methadone Screen Neg (NEG) Urine Barbiturates Neg (NEG) Urine Phencyclidine Screen Neg (NEG) Urine Amphetamine/Methamphetamine Neg (NEG) Urine Benzodiazepines Screen Neg (NEG) Urine Cocaine Screen Neg (NEG) Urine Cannabinoids Screen Neg (NEG) Urine Ethyl Alcohol Neg (NEG) Images Images Chest x-ray with a right side pneumothorax. Assessment/Plan Assessment/Plan 1. Cardiac arrest. Patient with PSVT in route to the hospital and the nursing staff reports a episode of loss of pulse and blood pressure. He was resuscitate d as per ACLS guidelines. He is now intubated and has a right chest tube in place. Heart rate 122. Decreased blood pressure now on pressors. Continuing present treatment. Will trend lab. Check echo. 2. Respiratory failure. Intubated. The family reports episodes of increasing shortness of breath this afternoon. Continuing treatment as above. Pulmonary evaluation. 3. Elevated WBC at 16.3. Possible sepsis. Antibiotics as per the primary service. 4. DKA. Initial glucose reportedly greater than 2000. Treatment has been initiated. 5. Acute renal failure. Creatinine of 3.0. Potassium over 3.9. Continuing close monitoring. 6. Right-sided pneumothorax. Chest tube in place. Patient on ventilator secondary to his arrest as above. 7. Initial episodes of PSVT not responsive to adenosine by report. Heart rate now in the low 120s. 8. History of Chiari Malformation surgery with a shunt placement greater than 20 years ago. BRANDY ALLEN MD Jun 14, 2021 19:16
[2021-06-14] MEDS ORDERED: NOREPINEPHRINE VIAL 32 MG in IV D5W 250ML IV PRN (19:30)
[2021-06-14] MEDS ORDERED: INSULIN REGULAR VIAL 100 UNIT in IV NORMAL SALINE 100ML 100 ML IV PRN (19:30)
[2021-06-14] MEDS ORDERED: VANCOMYCIN PER PHARMACY MC PRN (19:30)
[2021-06-14] MEDS ORDERED: ALBUMIN HUMAN 5% 500 ML IV ONE (19:30)
[2021-06-14] MEDS ORDERED: DEXTROSE 50% 25 GM / 50ML DISP.SYRIN. IV PRN (19:30)
[2021-06-14] MEDS ORDERED: VASOPRESSIN - VASOSTRICT 20 UNIT in IV NORMAL SALINE 100ML 100 ML IV PRN (19:30)
[2021-06-14] MEDS ORDERED: PHENYLEPHRINE INJ 100 MG in IV NS 250 ML IV PRN (20:00)
[2021-06-14] MEDS ORDERED: EPINEPHrine VIAL 5 MG in IV NORMAL SALINE 250ML 250 ML IV PRN (20:00)
[2021-06-14] MEDS ORDERED: IV NORMAL SALINE 1000ML BAG 1,000 ML IV ONE ×2 (20:30)
[2021-06-14] MEDS ORDERED: SODIUM BICARBONATE VIAL 150 MEQ in IV STERILE WATER 1,000 ML IV SCH (20:30)
--- NOTE | 2021-06-14 20:38 | RAD ---
CT Head W/O Contrast: History: Reason: R/o bleed for hypothermia / Spl. Instructions: / History: Comparison: none Axial images were obtained without contrast. The man and white matter appears normal and symmetrical for the patients age. There is no mass effe ct, extraaxial fluid collections or hydrocephalus. There is no gross bleed. There is no focal loss of man-white matter distinction to suggest acute ischemia, i.e. stroke. There is mild motion artifact. There is fluid in the maxillary sinuses and the ethmoid air cells and sphenoid sinus and frontal sinu s. Impression: Moderate pansinusitis. No acute intracranial findings. PQRS Compliance Statement: One or more of the following individualized dose reduction techniques were utilized for this examinat ion: 1. Automated exposure control 2. Adjustment of the mA and/or kV according to patient size 3. Use of iterative reconstruction technique Electronically signed by: Wenceslao Barriga III, MD (06/14/2021 8:35 PM) [facility]
--- NOTE | 2021-06-14 20:42 | RAD ---
Exam: CT of chest, abdomen and pelvis without contrast INDICATION: Post code TECHNIQUE: Sequential axial images through the chest, abdomen and pelvis obtained without IV contrast . Sagittal and coronal reformatted images were reconstructed from the axial data and reviewed. Exposure: One or more of the following in the visualized dose reduction techniques were utilized for this examination: 1. Automated exposure control 2. Adjustment of the MA and/or KV according to patient size 3. Use of iterative of reconstructive technique Comparisons: Chest x-ray same day FINDINGS: Visualized portions of the thyroid are unremarkable. No enlarged mediastinal lymph nodes are identifi ed. Heart size is normal. No pericardial effusion. Thoracic aorta has normal course and caliber. Pulmonar y artery is not enlarged. Moderate-sized right pneumothorax. There is a right sided chest tube with tip at the right stephanie. Ther e is atelectatic changes at the dependent portion lungs bilaterally. No suspicious lung nodules. No pleural effusion or thickening. Evaluation of solid abdominal organs is limited secondary to noncontrast technique. Diffuse hepatic steatosis. Spleen, pancreas, gallbladder and adrenals are unremarkable. No perinephric inflammation or hydronephrosis. No renal or ureteral calculi are identified. Bladder is decompressed with Zabala balloon noted in the bladder. Prostate is not enlarged. Moderate amount of stool is noted in the colon. There are a few gas-filled distended but nondilated l oops of small bowel in the lower abdomen. No free intra-abdominal air or fluid. No obstruction. Abdominal aorta has normal course and caliber. No enlarged intra-abdominal lymph nodes are identified. No suspicious osseous lesions or acute fractures. IMPRESSION: 1. Redemonstration of a moderate-sized right pneumothorax. Right-sided chest tube with tip at the ri ght stephanie. 2. Diffuse hepatic steatosis. 3. Air-filled distended loops of large and small bowel which is nonspecific. Electronically signed by: Kwan Freitas MD (06/14/2021 8:40 PM) [facility]
[2021-06-14] MEDS ORDERED: SUCCINYLCHOLINE 200 MG/10 ML VIAL. ONE (20:47)
[2021-06-14] MEDS ORDERED: ETOMIDATE 20 MG/10 ML VIAL. IV ONE (20:47)
[2021-06-14] MEDS ORDERED: VANCOMYCIN 2 GM in IV NORMAL SALINE 500ML BAG 500 ML IV ONE (21:00)
[2021-06-14 21:24] LABS: CALCIUM 10.4 mg/dL (8.5-10.1); CREATININE 3.9 mg/dL (0.7-1.3); GFR 18.2; POTASSIUM 3.1 mmol/L (3.5-5.1)
[2021-06-14 21:27] LABS: ALBUMIN 1.9 g/dL (3.4-5.0); ALBUMIN/GLOBULIN RATIO 0.6 (1.0-1.7); MAGNESIUM 3.6 mg/dL (1.8-2.4); TOTAL BILIRUBIN 0.7 mg/dL (0.2-1.0); TOTAL PROTEIN 4.9 g/dL (6.4-8.2)
--- NOTE | 2021-06-14 21:52 | EKG ---
[facility] [address] [place] [address] Test Date: 2021-06-14 Test Time: 16:51:14 Pat Name: JENNI ACUNA Department: Room: 102 1 Gender: M Operating Room Orderly: : 1990 Requested By: KAYLEE MEJÍA Order Number: [id number] Reading MD: Melchor Holm Measurements Intervals Noel Rate: 131 P: CA: QRS: 81 QRSD: 96 T: 18 QT: 336 QTc: 501 Interpretive Statements SUPRAVENTRICULAR TACHYCARDIA LOW LIMB LEAD VOLTAGE NON SPECIFIC ST-T WAVE CHANGES Electronically Signed On 06-16-2021 16:55:42 CDT by Melchor Holm
--- NOTE | 2021-06-14 21:53 | EKG ---
[facility] [address] [place] [address] Test Date: 2021-06-14 Test Time: 16:21:32 Pat Name: JENNI ACUNA Department: Room: 102 1 Gender: M Rate Inserter: : 1990 Requested By: KAYLEE MEJÍA Order Number: [id number] Reading MD: Melchor Holm Measurements Intervals [place] Rate: 141 P: -116 AK: 78 QRS: 22 QRSD: 80 T: -158 QT: 314 QTc: 483 Interpretive Statements SUPRAVENTRICULAR TACHYCARDIA LOW LIMB LEAD VOLTAGE QRS(T) CONTOUR ABNORMALITY CONSISTENT WITH SEPTAL INFARCT PROBABLY OLD ST & T ABNORMALITY, CONSIDER LATERAL ISCHEMIA OR LEFT VENTRICULAR STRAIN Electronically Signed On 06-16-2021 16:58:20 CDT by Melchor Holm
--- NOTE | 2021-06-14 22:00 | NUR ---
Admission/ Note: Patient admitted from ED Post code. Patient is intubated with size 8 ETT and 22 @ the lip. Vent setting AC 24/400/peep5/100%. Patient's SpO2 is in the 40s%. Patient's heart rate is 110-120. BP is low at this time. Patient is on Epi drip at 0.7mcg, OZIEL drip 1mcg, Levo drip 1mcg, Vaso Drip 0.4mcg, BiCarb running 125mL/hr, Insulin drip running at 20mL/hr, and bolus of normal saline running. Patient has central line in right subclavia, right upper arm, right AC and left AC. Family in waiting room. CONTENT MANAGEMENT SPECIALIST called to place A-line AT 2129, this nurse at bedside while CONTENT MANAGEMENT SPECIALIST is attempt to place right fem Naun. Patient's heart rate began to drop. This nurse bought family to bedside. Tasha langley was called at 2135, family watched CPR and meds given. At 2137, family agreed to stop CPR after patient coding three times in ER. Patient lost heart rate and had no pressure two nurse at bedside listened and were able to hear heart beat. Patient pronounced at 2141 with family at bedside. Jone and Dr Elizabeth called with update on patient. Patient is a assistant secretary case. See Chart for paper work
--- NOTE | 2021-06-14 22:24 | PDOC3 ---
Discharge Summary Visit Information Final Diagnosis Problems Medical Problems: (1) Acute renal failure Status: Acute (2) Aspiration pneumonitis Status: Acute (3) Cardiac arrest Status: Acute (4) DKA (diabetic ketoacidosis) Status: Acute (5) Pneumothorax, right Status: Acute (6) Respiratory failure Status: Acute (7) SVT (supraventricular tachycardia) Status: Acute Brief Hospital Course Allergies Allergies Coded Allergies Type Severity Reaction Last Updated Verified No Known Drug Allergies 06/14/21 No Vital Signs Vital Signs Date Time Temp Pulse Resp B/P (MAP) Pulse Ox O2 Delivery O2 Flow Rate FiO2 06/14/21 20:50 Ventilator 06/14/21 19:01 104 24 95/49 (64) 90 06/14/21 16:10 102.7 10.0 102.7 Lab Results Laboratory Tests Test 06/14/21 16:15 06/14/21 16:47 06/14/21 17:50 06/14/21 19:10 White Blood Count 16.3 x10^3/uL (4.0-11.0) Red Blood Count 5.42 x10^6/uL (4.30-5.70) Hemoglobin 15.6 g/dL (13.0-17.5) Hematocrit 55.2 % (39.0-53.0) Mean Corpuscular Volume 102 fL (79-100) Mean Corpuscular Hemoglobin 29 pg (25-35) Mean Corpuscular Hemoglobin Concent 28 g/dL (31-37) Red Cell Distribution Width 14.2 % (11.5-14.5) Platelet Count 481 x10^3/uL (140-400) Neutrophils (%) (Auto) 91 % (31-73) Lymphocytes (%) (Auto) 4 % (24-48) Monocytes (%) (Auto) 5 % (0-9) Eosinophils (%) (Auto) 0 % (0-3) Basophils (%) (Auto) 0 % (0-3) Neutrophils # (Auto) 14.8 x10^3/uL (1.8-7.7) Lymphocytes # (Auto) 0.7 x10^3/uL (1.0-4.8) Monocytes # (Auto) 0.8 x10^3/uL (0.0-1.1) Eosinophils # (Auto) 0.0 x10^3/uL (0.0-0.7) Basophils # (Auto) 0.0 x10^3/uL (0.0-0.2) Segmented Neutrophils % 88 % (35-66) Band Neutrophils % 5 % (0-9) Lymphocytes % 3 % (24-48) Monocytes % 4 % (0-10) Platelet Estimate Increased (ADEQUATE) Sodium Level 127 mmol/L (136-145) Potassium Level 3.9 mmol/L (3.5-5.1) Chloride Level 88 mmol/L (98-107) Carbon Dioxide Level 20 mmol/L (21-32) Anion Gap 19 (6-14) Blood Urea Nitrogen 29 mg/dL (8-26) Creatinine 3.0 mg/dL (0.7-1.3) Estimated GFR (Cockcroft-Gault) 24.7 BUN/Creatinine Ratio 10 (6-20) Glucose Level 2007 mg/dL (70-99) Calcium Level 9.3 mg/dL (8.5-10.1) Magnesium Level 2.8 mg/dL (1.8-2.4) Total Bilirubin 0.7 mg/dL (0.2-1.0) Aspartate Amino Transf (AST/SGOT) 19 U/L (15-37) Alanine Aminotransferase (ALT/SGPT) 74 U/L (16-63) Alkaline Phosphatase 175 U/L (46-116) Troponin I High Sensitivity 15 ng/L (4-75) Total Protein 7.3 g/dL (6.4-8.2) Albumin 3.5 g/dL (3.4-5.0) Albumin/Globulin Ratio 0.9 (1.0-1.7) Lipase 71 U/L (73-393) Urine Collection Type Unknown Urine Color (Auto) Colorless Urine Turbidity Clear Urine pH (Auto) 5.5 (<5.0-8.0) Urine Specific [place] 1.028 (1.000-1.030) Urine Protein (Auto) Negative mg/dL (Negative) Urine Glucose (Auto)(UA) >=1000 mg/dL (Negative) Urine Ketones (Auto) Trace mg/dL (Negative) Urine Blood (Auto) Moderate (Negative) Urine Nitrite Negative (Negative) Urine Bilirubin (Auto) Negative (Negative) Urine Urobilinogen (Auto) Normal mg/dL (Normal) Urine Leukocyte Esterase (Auto) Negative (Negative) Urine RBC 1-2 /HPF (0-2) Urine WBC 1-4 /HPF (0-4) Urine Amorphous Sediment Present /HPF Urine Bacteria 0 /HPF (0-FEW) O2 Saturation 86 % (92-99) 67 % (92-99) Arterial Blood pH 6.80 (7.35-7.45) 6.83 (7.35-7.45) Arterial Blood pCO2 at Patient Temp 113 mmHg (35-46) 103 mmHg (35-46) Arterial Blood pO2 at Patient Temp 86 mmHg (85-108) 57 mmHg (85-108) Arterial Blood HCO3 17 mmol/L (21-28) 17 mmol/L (21-28) Arterial Blood Base Excess -20 mmol/L (-3-3) -20 mmol/L (-3-3) FiO2 100 100 Urine Opiates Screen Neg (NEG) Urine Methadone Screen Neg (NEG) Urine Barbiturates Neg (NEG) Urine Phencyclidine Screen Neg (NEG) Urine Amphetamine/Methamphetamine Neg (NEG) Urine Benzodiazepines Screen Neg (NEG) Urine Cocaine Screen Neg (NEG) Urine Cannabinoids Screen Neg (NEG) Urine Ethyl Alcohol Neg (NEG) SARS-CoV-2 Antigen (Rapid) Negative (NEGATIVE) Test 06/14/21 19:50 Sodium Level 148 mmol/L (136-145) Potassium Level 3.1 mmol/L (3.5-5.1) Chloride Level 105 mmol/L (98-107) Carbon Dioxide Level 22 mmol/L (21-32) Anion Gap 21 (6-14) Blood Urea Nitrogen 30 mg/dL (8-26) Creatinine 3.9 mg/dL (0.7-1.3) Estimated GFR (Cockcroft-Gault) 18.2 BUN/Creatinine Ratio 8 (6-20) Glucose Level 1573 mg/dL (70-99) Lactic Acid Level 16.1 mmol/L (0.4-2.0) Calcium Level 10.4 mg/dL (8.5-10.1) Magnesium Level 3.6 mg/dL (1.8-2.4) Total Bilirubin 0.7 mg/dL (0.2-1.0) Aspartate Amino Transf (AST/SGOT) 116 U/L (15-37) Alanine Aminotransferase (ALT/SGPT) 88 U/L (16-63) Alkaline Phosphatase 265 U/L (46-116) Troponin I High Sensitivity 131 ng/L (4-75) Total Protein 4.9 g/dL (6.4-8.2) Albumin 1.9 g/dL (3.4-5.0) Albumin/Globulin Ratio 0.6 (1.0-1.7) Laboratory Tests Test 06/14/21 16:15 06/14/21 16:47 06/14/21 17:50 06/14/21 19:10 White Blood Count 16.3 x10^3/uL (4.0-11.0) Red Blood Count 5.42 x10^6/uL (4.30-5.70) Hemoglobin 15.6 g/dL (13.0-17.5) Hematocrit 55.2 % (39.0-53.0) Mean Corpuscular Volume 102 fL (79-100) Mean Corpuscular Hemoglobin 29 pg (25-35) Mean Corpuscular Hemoglobin Concent 28 g/dL (31-37) Red Cell Distribution Width 14.2 % (11.5-14.5) Platelet Count 481 x10^3/uL (140-400) Neutrophils (%) (Auto) 91 % (31-73) Lymphocytes (%) (Auto) 4 % (24-48) Monocytes (%) (Auto) 5 % (0-9) Eosinophils (%) (Auto) 0 % (0-3) Basophils (%) (Auto) 0 % (0-3) Neutrophils # (Auto) 14.8 x10^3/uL (1.8-7.7) Lymphocytes # (Auto) 0.7 x10^3/uL (1.0-4.8) Monocytes # (Auto) 0.8 x10^3/uL (0.0-1.1) Eosinophils # (Auto) 0.0 x10^3/uL (0.0-0.7) Basophils # (Auto) 0.0 x10^3/uL (0.0-0.2) Segmented Neutrophils % 88 % (35-66) Band Neutrophils % 5 % (0-9) Lymphocytes % 3 % (24-48) Monocytes % 4 % (0-10) Platelet Estimate Increased (ADEQUATE) Sodium Level 127 mmol/L (136-145) Potassium Level 3.9 mmol/L (3.5-5.1) Chloride Level 88 mmol/L (98-107) Carbon Dioxide Level 20 mmol/L (21-32) Anion Gap 19 (6-14) Blood Urea Nitrogen 29 mg/dL (8-26) Creatinine 3.0 mg/dL (0.7-1.3) Estimated GFR (Cockcroft-Gault) 24.7 BUN/Creatinine Ratio 10 (6-20) Glucose Level 2007 mg/dL (70-99) Calcium Level 9.3 mg/dL (8.5-10.1) Magnesium Level 2.8 mg/dL (1.8-2.4) Total Bilirubin 0.7 mg/dL (0.2-1.0) Aspartate Amino Transf (AST/SGOT) 19 U/L (15-37) Alanine Aminotransferase (ALT/SGPT) 74 U/L (16-63) Alkaline Phosphatase 175 U/L (46-116) Troponin I High Sensitivity 15 ng/L (4-75) Total Protein 7.3 g/dL (6.4-8.2) Albumin 3.5 g/dL (3.4-5.0) Albumin/Globulin Ratio 0.9 (1.0-1.7) Lipase 71 U/L (73-393) Urine Collection Type Unknown Urine Color (Auto) Colorless Urine Turbidity Clear Urine pH (Auto) 5.5 (<5.0-8.0) Urine Specific [place] 1.028 (1.000-1.030) Urine Protein (Auto) Negative mg/dL (Negative) Urine Glucose (Auto)(UA) >=1000 mg/dL (Negative) Urine Ketones (Auto) Trace mg/dL (Negative) Urine Blood (Auto) Moderate (Negative) Urine Nitrite Negative (Negative) Urine Bilirubin (Auto) Negative (Negative) Urine Urobilinogen (Auto) Normal mg/dL (Normal) Urine Leukocyte Esterase (Auto) Negative (Negative) Urine RBC 1-2 /HPF (0-2) Urine WBC 1-4 /HPF (0-4) Urine Amorphous Sediment Present /HPF Urine Bacteria 0 /HPF (0-FEW) O2 Saturation 86 % (92-99) 67 % (92-99) Arterial Blood pH 6.80 (7.35-7.45) 6.83 (7.35-7.45) Arterial Blood pCO2 at Patient Temp 113 mmHg (35-46) 103 mmHg (35-46) Arterial Blood pO2 at Patient Temp 86 mmHg (85-108) 57 mmHg (85-108) Arterial Blood HCO3 17 mmol/L (21-28) 17 mmol/L (21-28) Arterial Blood Base Excess -20 mmol/L (-3-3) -20 mmol/L (-3-3) FiO2 100 100 Urine Opiates Screen Neg (NEG) Urine Methadone Screen Neg (NEG) Urine Barbiturates Neg (NEG) Urine Phencyclidine Screen Neg (NEG) Urine Amphetamine/Methamphetamine Neg (NEG) Urine Benzodiazepines Screen Neg (NEG) Urine Cocaine Screen Neg (NEG) Urine Cannabinoids Screen Neg (NEG) Urine Ethyl Alcohol Neg (NEG) SARS-CoV-2 Antigen (Rapid) Negative (NEGATIVE) Test 06/14/21 19:50 Sodium Level 148 mmol/L (136-145) Potassium Level 3.1 mmol/L (3.5-5.1) Chloride Level 105 mmol/L (98-107) Carbon Dioxide Level 22 mmol/L (21-32) Anion Gap 21 (6-14) Blood Urea Nitrogen 30 mg/dL (8-26) Creatinine 3.9 mg/dL (0.7-1.3) Estimated GFR (Cockcroft-Gault) 18.2 BUN/Creatinine Ratio 8 (6-20) Glucose Level 1573 mg/dL (70-99) Lactic Acid Level 16.1 mmol/L (0.4-2.0) Calcium Level 10.4 mg/dL (8.5-10.1) Magnesium Level 3.6 mg/dL (1.8-2.4) Total Bilirubin 0.7 mg/dL (0.2-1.0) Aspartate Amino Transf (AST/SGOT) 116 U/L (15-37) Alanine Aminotransferase (ALT/SGPT) 88 U/L (16-63) Alkaline Phosphatase 265 U/L (46-116) Troponin I High Sensitivity 131 ng/L (4-75) Total Protein 4.9 g/dL (6.4-8.2) Albumin 1.9 g/dL (3.4-5.0) Albumin/Globulin Ratio 0.6 (1.0-1.7) Brief Hospital Course Time of 2141 Discharge Information Condition at Discharge: / Disposition/Orders: RIFFEL,CHRISTOPHER S MD Jun 14, 2021 22:24
[2021-06-14] MEDS ORDERED: cefTRIAXone IV Push 2 GM VIAL. IVP SCH (23:00)
== END 2021-06-14 21:50 | DRG 871 ==
LOC: ER 16:09 → 1 WEST ICU 17:54
PROVIDERS: ADMIT Internal Medicine; ATTEND Internal Medicine
PROC: 02HV33Z Insertion of Infusion Device into Superior Vena Cava, Percutaneous Approach (ICD-10-PCS; principal; 2021-06-14)
PROC: B548ZZA Ultrasonography of Superior Vena Cava, Guidance (ICD-10-PCS; 2021-06-14)
PROC: 0W9930Z Drainage of Right Pleural Cavity with Drainage Device, Percutaneous Approach (ICD-10-PCS; 2021-06-14)
PROC: 5A12012 Performance of Cardiac Output, Single, Manual (ICD-10-PCS; 2021-06-14)
PROC: 5A1935Z Respiratory Ventilation, Less than 24 Consecutive Hours (ICD-10-PCS; 2021-06-14)
PROC: 0BH17EZ Insertion of Endotracheal Airway into Trachea, Via Natural or Artificial Opening (ICD-10-PCS; 2021-06-14)
DX: A41.9 Sepsis, unspecified organism (principal); E11.10 Type 2 diabetes mellitus with ketoacidosis without coma; J69.0 Pneumonitis due to inhalation of food and vomit; J96.92 Respiratory failure, unspecified with hypercapnia; J96.91 Respiratory failure, unspecified with hypoxia; I47.1 Supraventricular tachycardia; J93.9 Pneumothorax, unspecified; N17.9 Acute kidney failure, unspecified; Z20.822 Contact with and (suspected) exposure to COVID-19; D75.89 Other specified diseases of blood and blood-forming organs; I46.9 Cardiac arrest, cause unspecified; Z82.49 Family history of ischemic heart disease and other diseases of the circulatory system; Z83.3 Family history of diabetes mellitus; Z86.61 Personal history of infections of the central nervous system
CPT/HCPCS: 36415; 36600; 70450; 71045; 71250; 74176; 80053; 80307; 81001; 82805; 83605; 83690; 83735; 84484; 85007; 85025; 87426; 93005; 94002; 96361; 96365; 96367; 96368; J0171; J0282; J1815; J2543; J3490; J7030; J7060; U0003; 99291-25; G0378